=== PATIENT | female | born 1930 | race Caucasian/White ===

== ENCOUNTER 2017-03-09 13:18 | Emergency (ER) | payer MEDICARE, OTHER ==
[2017-03-09 13:29] VITALS: BP 107/53
--- NOTE | 2017-03-09 14:22 | EDM.PDOC ---
ED HPI GENERAL MEDICAL PROBLEM - General Chief Complaint: Head Injury Time Seen by Provider: 03/09/17 13:53 Source of Information: Reports: Patient History Limitations: Reports: No Limitations - History of Present Illness INITIAL COMMENTS - FREE TEXT/NARRATIVE: Patient brought to ER by her daughter, with injuries to head, elbows and left ankle. Pt was walking to the car and thinks she tripped on the edge of the sidewalk causing her to fall backward. She hit the back of her head and back of both elbows on the gravel road. She also has a cut on the left ankle. She could bear weight without difficulty. She has some pain in her right shoulder but otherwise denies any feeling of pain in the bones, just in the skin. No LOC or vision changes. She was getting in the car for a doctor appointment with Dr. Gudino to check for a UTI since she has been having some episodes of confusion and dizziness per her daughter. In the past, these symptoms have accompanied UTIs. The most recent one was treated and completed a 7-day course of Cipro two weeks ago. Head Pain Score (Numeric/FACES): 8 - Related Data Allergies Allergy/AdvReac Type Severity Reaction Status Date / Time No Known Drug Allergies Allergy Cannot Verified 03/09/17 13:33 Remember Home Meds: Home Meds *Replenex 1 tab PO BID 08/25/16 [History] Chlorthalidone 12.5 mg PO DAILY 08/25/16 [History] Cholecalciferol (Vitamin D3) [Vitamin D] 1 tab PO DAILY 08/25/16 [History] Citalopram [Celexa] 40 mg PO DAILY 08/25/16 [History] Esomeprazole [NexIUM] 40 mg PO DAILY 08/25/16 [History] Furosemide [Lasix] 20 mg PO DAILY 08/25/16 [History] Hydrocodone/Acetaminophen [Hydrocodon-Acetaminophn 10-325] 1 tab PO TID PRN [History] Levothyroxine 25 mcg PO DAILY 08/25/16 [History] Multivit-Min/FA/Lycopene/Lut [Centrum Silver Tablet] 1 tab PO DAILY 08/25/16 [ History] Tolterodine Tartrate [Tolterodine Tartrate ER] 4 mg PO DAILY 08/25/16 [History] amLODIPine [Norvasc] 5 mg PO DAILY 08/25/16 [History] Aspirin [Adult Low Dose Aspirin EC] 81 mg PO DAILY 03/09/17 [History] Calcium Carbonate [Calci-Chew] 500 mg PO BID 03/09/17 [History] Ipratropium/Albuterol Sulfate [Combivent Respimat Inhal [place]] 4 gm IH DAILY [History] Losartan [Cozaar] 100 mg PO DAILY 03/09/17 [History] Lutein/Minerals/Vit A,C & E [I-[place]] 1 each PO BID 03/09/17 [History] Past Medical History HEENT History: Reports: Cataract, Impaired Vision Cardiovascular History: Reports: Hypertension Other Cardiovascular History: edema Respiratory History: Reports: None Gastrointestinal History: Reports: Chronic Constipation, GERD Genitourinary History: Reports: Urinary Incontinence, UTI, Recurrent Other Genitourinary History: overactive bladder 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: Musculoskeletal History: Reports: Back Pain, Chronic Neurological History: Reports: None Psychiatric History: Reports: Depression Endocrine/Metabolic History: Reports: Hypothyroidism Hematologic History: Reports: None Oncologic (Cancer) History: Reports: Squamous Cell Carcinoma Dermatologic History: Reports: None - Past Surgical History HEENT Surgical History: Reports: Cataract Surgery, Tonsillectomy Cardiovascular Surgical History: Reports: None Respiratory Surgical History: Reports: None GI Surgical History: Reports: Appendectomy, Colonoscopy, EGD Female Surgical History: Reports: Other (See Below) Other Female Surgeries/Procedures: bladder surgery with bladder mesh placement. Endocrine Surgical History: Reports: None Neurological Surgical History: Reports: Lumbar Spine Musculoskeletal Surgical History: Reports: Shoulder Surgery, Other (See Below) Other Musculoskeletal Surgeries/Procedures:: bsck surgery x 2 Oncologic Surgical History: Reports: None Social & Family History - Tobacco Use Smoking Status *Q: Never Smoker Second Hand Smoke Exposure: No - Caffeine Use Caffeine Use: Reports: Coffee, Tea Caffeine Use Comment: did not ask - Alcohol Use Days Per Week of Alcohol Use: 5 Number of Drinks Per Day: 2 Total Drinks Per Week: 10 - Recreational Drug Use Recreational Drug Use: No ED ROS GENERAL - Review of Systems Review Of Systems: See Below Constitutional: Denies: Fever, Weakness HEENT: Denies: Vision Change Respiratory: Denies: Shortness of Breath, Cough Cardiovascular: Denies: Chest Pain, Syncope GI/Abdominal: Reports: Constipation (chronic). Denies: Abdominal Pain, Diarrhea , Nausea, Vomiting : Denies: Dysuria, Flank Pain Musculoskeletal: Reports: Shoulder Pain (right). Denies: Neck Pain, Arm Pain, Back Pain, Leg Pain Skin: Denies: Cyanosis, Jaundice, Mottled, Pallor, Diaphoresis Neurological: Reports: Confusion (brief episodes per daughter), Dizziness (a few times in last few days). Denies: Headache, Seizure, Syncope, Trouble Speaking Psychiatric: Denies: Agitation, Anxiety Hematologic/Lymphatic: Denies: Easy Bleeding ED EXAM, HEAD INJURY - Physical Exam Exam: See Below Exam Limited By: No Limitations General Appearance: Alert, WD/WN, No Apparent Distress Head: Scalp Abrasions (occipital), Scalp Hematoma. No: Scalp Lacerations, Scalp Swelling, Roque's Sign, Flap, Facial Abrasions, Facial Ecchymosis, Facial Lacerations, Facial Swelling, Raccoon Eyes Nexus Criteria: No: Posterior, Midline Cervical Tenderness, Altered Level of Consciousness, Focal Neurological Deficit Eyes: Bilateral Eye: EOMI, Normal Inspection, PERRL Ears: Normal External Exam, Hearing Grossly Normal Nose: Normal Inspection, No Blood Throat/Mouth: Normal Inspection, Normal Lips, Normal Voice, No Airway Compromise Neck: Non-Tender, Full Range of Motion, Normal Alignment, Normal Inspection. No : Paraspinous Muscle Tender, Spinous Processes Tender, Tenderness, Tender Lateral, Tender Midline Respiratory: No Respiratory Distress, Lungs Clear, Normal Breath Sounds Cardiovascular: Regular Rate, Rhythm, No Murmur GI/Abdominal Exam: Normal Bowel Sounds, Soft, Non-Tender, No Organomegaly, No Distention Back Exam: Normal Inspection, Full Range of Motion. No: CVA Tenderness (L), CVA Tenderness (R) Extremities: Arm Pain (right shoulder is tender with ROM; palpation reveals pain at anterior and superior shoulder.), Other (Skin tears and superficial lacerations of bilat posterior elbows and lateral left ankle. The ankle and right elbow are probably deep enough to warrant closure but the left elbow is just very superficial, although quite large at approx 2 x 10 cm in size. This is cleaned with Hibiclens solution and re-approximated as much as possible prior to covering with Tegaderm.) Neurologic: manager of development II-XII nml As Tested, No Motor/Sensory Deficits, Alert, Normal Mood/Affect, Oriented x 3 Skin: Normal Color, Warm/Dry. No: Cyanosis, Diaphoresis - [place] Coma Score Best Eye Response ([place]): (4) Open Spontaneously Best Verbal Response ([place]): (5) Oriented Best Motor Response (Angelia): (6) Obeys Commands Course - Vital Signs Last Recorded V/S: Last Vital Signs Temp 97.7 F 03/09/17 13:24 Pulse 79 03/09/17 13:24 Resp 18 03/09/17 13:24 BP 107/53 L 03/09/17 13:24 Pulse Ox 95 03/09/17 13:24 - Orders/Labs/Meds Orders: Active Orders 24 hr Category Date Time Status Head wo Cont [CT] Stat Exams 03/09/17 14:08 Ordered BASIC METABOLIC PANEL,BMP [CHEM] Stat Lab 03/09/17 14:08 Ordered CBC WITH AUTO DIFF [HEME] Stat Lab 03/09/17 14:08 Ordered UA W/MICROSCOPIC [URIN] Stat Lab 03/09/17 14:08 Uncollected - Re-Assessments/Exams Free Text/Narrative Re-Assessment/Exam: 03/09/17 16:24 CT and shoulder films are negative for acute pathology. UA is suggestive of a UTI. Culture pending. Discussed findings with patient and her daughter. Will treat with Cipro for a week and follow up with her PCP for culture results. Patient discharged in stable condition. Departure - Departure Time of Disposition: 16:16 Disposition: Home, Self-Care 01 Condition: Good Clinical Impression: UTI (urinary tract infection) Qualifiers: Urinary tract infection type: site unspecified Hematuria presence: without hematuria Qualified Code(s): N39.0 - Urinary tract infection, site not specified Scalp hematoma Qualifiers: Encounter type: initial encounter Qualified Code(s): S00.03XA - Contusion of scalp, initial encounter Laceration of ankle without complication Qualifiers: Encounter type: initial encounter Laterality: left Qualified Code(s): S91.012A - Laceration without foreign body, left ankle, initial encounter Skin tear of elbow without complication Qualifiers: Encounter type: initial encounter Laterality: left Qualified Code(s): S51.012A - Laceration without foreign body of left elbow, initial encounter Laceration of elbow without complication Qualifiers: Encounter type: initial encounter Laterality: right Qualified Code(s): S51.011A - Laceration without foreign body of right elbow, initial encounter - Discharge Information Referrals: Mary Gallegos MD [Primary Care Provider] - Additional Instructions: 1. Keep wounds clean and dry except for showering daily. 2. Recheck TAMRA if any sign of infection. 3. Follow up with your PCP in ten days for suture removal. - My Orders Last 24 Hours: My Active Orders 03/09/17 14:08 Head wo Cont [CT] Stat BASIC METABOLIC PANEL,BMP [CHEM] Stat CBC WITH AUTO DIFF [HEME] Stat UA W/MICROSCOPIC [URIN] Stat - Assessment/Plan Last 24 Hours: My Active Orders 03/09/17 14:08 Head wo Cont [CT] Stat BASIC METABOLIC PANEL,BMP [CHEM] Stat CBC WITH AUTO DIFF [HEME] Stat UA W/MICROSCOPIC [URIN] Stat
[2017-03-09 14:30] LABS: POTASSIUM,POC 3.4 mmol/L (3.5-4.9)
[2017-03-09] MEDS ORDERED: Lidocaine 1% with EPINEPHrine 1:100,000 20 ML MDV INJECT ONE (15:35)
== END 2017-03-09 16:35 | disposition home or self-care (01) ==
LOC: KA.ED 13:18
DX: S91.012A Laceration without foreign body, left ankle, initial encounter (principal); S51.012A Laceration without foreign body of left elbow, initial encounter; S51.011A Laceration without foreign body of right elbow, initial encounter; S00.03XA Contusion of scalp, initial encounter; N39.0 Urinary tract infection, site not specified; Z79.899 Other long term (current) drug therapy; H54.7 Unspecified visual loss; I10 Essential (primary) hypertension; K21.9 Gastro-esophageal reflux disease without esophagitis; E03.9 Hypothyroidism, unspecified; Z98.890 Other specified postprocedural states; Z90.49 Acquired absence of other specified parts of digestive tract; W01.198A Fall on same level from slipping, tripping and stumbling with subsequent striking against other object, initial encounter; W45.8XXA Other foreign body or object entering through skin, initial encounter
CPT/HCPCS: 12001; 36415; 70450; 73030-RT; 80047; 81001; 85025; 87086; 99283; 99284